=== PATIENT | male | born 1950 | race Caucasian/White ===

== ENCOUNTER 2017-03-06 07:21 | Day surgery (SDC) | payer OTHER ==
[2017-03-01 12:41] VITALS: BMI 32.5
[2017-03-06] MEDS ORDERED: PROPOFOL 20 ML ONE ×2 (07:24)
[2017-03-06] MEDS ORDERED: LIDOCAINE HCL/PF 2% SDV 5ML VIAL ONE (07:32)
[2017-03-06 08:56] VITALS: TEMP 97.7
[2017-03-06 09:29] VITALS: BP 103/75; PULSE 52
--- NOTE | 2017-03-07 11:41 | PATH ---
Surgical Pathology Report Patient Name: MARIO GILL [facility]. Rec. #: [id number] /Age/Gender: 1950 (Age: 66) / M Account: [id number] Location: [facility]-ENDOSCOPY Taken: 03/06/2017 Received: 03/06/2017 Reported: 03/07/2017 Physicians: Srinivas Paz M.D. Specimen(s) Received BX RIGHT COLON Clinical History Preoperative diagnosis: Rule out colon cancer Postoperative diagnosis: polyp Final Diagnosis COLON, RIGHT, POLYP, BIOPSY: TUBULAR ADENOMA. Electronically Signed Nery Ortiz M.D. Gross Description Received in formalin, labeled "right colon" are 2 coello, irregular portions of soft tissue measuring 0.7 and 0.8 cm. in greatest dimension. The specimens are submitted in toto in one cassette. /03/06/201703/06/2017
== END 2017-03-06 09:35 | disposition home or self-care (01) ==
LOC: FASU-ENDO 07:21
PROVIDERS: ATTEND Internal Medicine Gastroenterology
PROC: 0DBK8ZX Excision of Ascending Colon, Via Natural or Artificial Opening Endoscopic, Diagnostic (ICD-10-PCS; principal; 2017-03-06 08:30)
DX: Z12.11 Encounter for screening for malignant neoplasm of colon (principal); D12.2 Benign neoplasm of ascending colon

== ENCOUNTER 2022-01-12 07:20 | Day surgery (SDC) | payer OTHER, MEDICARE ==
[2022-01-10 15:32] VITALS: BMI 32.5
[2022-01-12 09:35] VITALS: TEMP 97.5
[2022-01-12 09:36] VITALS: BP 110/70; PULSE 55; RESP 19
== END 2022-01-12 09:51 | disposition home or self-care (01) ==
LOC: FASU-ENDO 07:20
PROVIDERS: ATTEND Internal Medicine Gastroenterology
PROC: 0DBL8ZX Excision of Transverse Colon, Via Natural or Artificial Opening Endoscopic, Diagnostic (ICD-10-PCS; principal; 2022-01-12 08:25)
DX: Z12.11 Encounter for screening for malignant neoplasm of colon (principal); Z86.010 Personal history of colon polyps; D12.2 Benign neoplasm of ascending colon
CPT/HCPCS: 88305-TC